=== PATIENT | female | born 1950 | race Caucasian/White ===

== ENCOUNTER 2018-10-28 09:43 | Outpatient (REF) | payer OTHER, SELFPAY ==
[2018-10-28 14:17] LABS: ALT 30 U/L (12-78); AST 16 U/L (15-37); Albumin 3.5 g/dL (3.4-5.0); Alkaline Phosphatase 117 U/L (46-116); Anion Gap 6.4 mmol/L (3-11); BUN 16 mg/dL (7-18); Bilirubin, Total 0.3 mg/dL (0.2-1.0); CO2 30.6 mmol/L (21.0-32.0); CREATININE 1.04 mg/dL (0.55-1.02); Calcium 9.1 mg/dL (8.5-10.1); Chloride 102 mmol/L (98-107); Cholesterol 149 mg/dL (50-200); Glucose 98 mg/dL (70-100); HDL Cholesterol 49 mg/dL (40-60); LDL CHOLESTEROL 80 mg/dL (<100); Potassium 4.3 mmol/L (3.5-5.1); Sodium 139 mmol/L (136-145); TSH (W/Ref FT4) 7.64 uIU/mL (0.358-3.74); Triglyceride 113 mg/dL (30-150)
[2018-10-28 14:34] LABS: FREE T4 0.84 ng/dL (0.76-1.46)
[2018-10-28 14:39] LABS: Vitamin D 25 Total 75.2 ng/ml (30-100)
== END 2018-10-28 10:03 ==
LOC: NCHCN 09:43
PROVIDERS: PCP Family Medicine; Visit Provider Family Medicine
DX: E03.9 Hypothyroidism, unspecified (principal); E55.9 Vitamin D deficiency, unspecified
CPT/HCPCS: 80053; 80061; 82306; 83721; 84439; 84443

== ENCOUNTER 2018-11-12 13:56 | Outpatient (CLI) | payer OTHER, SELFPAY ==
--- NOTE | 2018-11-14 13:00 | DI.MAMMO_ITS ---
SYMPTOMS/DIAGNOSIS: SCREENING, Z12.31, [facility], Z00.00 MAMMOGRAMS: Mammograms were interpreted according to the usual protocol including computer analysis with CAD system, tomosynthesis and C view imaging. The breasts are heterogeneously dense. No dominant mass or clumped microcalcification is identified in either breast. Current examination is compared with previous examinations including June 2017 and there has been no gross interval change in appearance in comparison with the previous studies. CONCLUSION: No specific evidence of malignancy at this time. Routine screening examinations are suggested at yearly intervals in this age group according to the ACS/ACR guidelines. Category 1, breast density category C. MQSA ASSESSMENT OF FINDINGS: Negative. Category 1. Patient will receive a letter notifying them of these results. Bi-RADS category C. The breasts are heterogeneously dense, which may obscure small masses.
== END 2018-11-12 14:16 ==
PROVIDERS: PCP Family Medicine; Visit Provider Family Medicine
DX: Z00.00 Encounter for general adult medical examination without abnormal findings (principal); Z12.31 Encounter for screening mammogram for malignant neoplasm of breast
CPT/HCPCS: 77063; 77067

== ENCOUNTER 2019-01-06 00:10 | Outpatient (CLI) | payer OTHER, SELFPAY ==
--- NOTE | 2019-01-06 08:15 | MERGEMPI_ITS ---
*[facility]* *[facility]* [address] [place] [address] Myocardial Perfusion Imaging - SPECT Bob protocol Date of study: 01/06/2019 *PATIENT PRESENTATION* Height: 162.6cm (64in) Blood Pressure: Weight: 105.9kg (233lb) BSA: 2.24m^2 Referring physician: Todd Maravilla MD Ordering physician: Graciela Jackson Impressions: - Normal perfusion by Tc99m Sestamibi Imaging. - Breast artifact noted. Summary: 1. Myocardial perfusion imaging: No myocardial perfusion defects noted. 2. The calculated left ventricular ejection fraction after stress: 59%. Indication: R07.9. History: REASON FOR TESTING: CHEST PAIN FROM CENTER OF CHEST THAT WNET INTO THE PATIENT'S BACK AND UP INTO HER JAW WITH ASSOCIATED NAUSEA. LASTED 20-30 MINS. SYMPTOMS RESOLVED WITH REST. PT HAS NOT HAD ANY REPEATS OF THE PAIN SINCE. PMH: HYPOTHYROIDISM, ANXIETY, DEPRESSION FAMILY HX: BROTHER- CVS X2, BROTHER CVA AND HI. SMOKING: QUIT 1990. SMOKED X 40 YEARS 23- PPD. EXCERCISE: NO REGULAR EXCERCISE. Risk factors: Family history of coronary artery disease. Obesity. Dyslipidemia. Cholesterol: 274mg/dl. HDL: 49mg/dl. LDL: 80mg/dl. Triglycerides: 113mg/dl. ALLERIGES: MEPERIDINE, SULFA MEDICATIONS: SERTRALINE 200 MG DAILY, PANTOPRAZOLE 40 MG DAILY, LEVOTHYROXINE 88 MCG, VIT D3 1 DAILY, AMITRIPTYLINE 100 MG HS. Imaging Technique: Protocol: Bob protocol. Acquisition: Gated SPECT; 1 day - rest/stress. The patient was imaged in the supine position. Attenuation correction used. Isotope administration: - Rest. Tc[99m]-sestamibi. Dose: 10.3mCi. Injection time: 08:15 AM. Injection to stress time: 00:45. - Stress. Tc[99m]-sestamibi. Dose: 32mCi. Injection time: 10:05 AM. 1-2 min before end of exercise Baseline ECG: LAST EKG 10/24/06- SINUS RHYTHM, HR 81 TODAY'S EKG- SINUS RYHTYM, HR 73. Stress protocol: + +---+ +---+ + !Stage !HR !BP (mmHg) !Sat!Comments ! + +---+ +---+ + !Baseline supine !73 !122/58 !---! ! ! ! !(79) ! ! ! + +---+ +---+ + !Baseline standing!75 !130/68 !---!TRANSITIONED TO LEXISCAN ! ! ! !(89) ! !PROTOCOL. ! + +---+ +---+ + !Peak stress !110!148/60 !96%! ! ! ! !(89) ! ! ! + +---+ +---+ + !1 min !87 !138/60 !---!Inject Regadenoson. ! ! ! !(86) ! ! ! + +---+ +---+ + !2 min !91 ! !---! ! + +---+ +---+ + !3 min !89 ! !---! ! + +---+ +---+ + !4 min !85 !124/60 !---! ! ! ! !(81) ! ! ! + +---+ +---+ + !5 min !84 ! !---! ! + +---+ +---+ + !6 min !83 !122/58 !---! ! ! ! !(79) ! ! ! + +---+ +---+ + * Stress results: The rate-pressure product for the peak heart rate and blood pressure was 70886iu Hg/min. Stress ECG: EXCERCISE TESTING ENDED IN 1 MIN, 54 SECS DUE TO FATIGUE. MAX HR WAS 110, 72% OF TARGET. HYPERTENSIVE BLOOD PRESSURE RESPONSE. METS:4.57 ECTOPY: NONE ANGINA: NONE ISCHEMIA:NONE FUNCTIONAL CAPACITY: MODERATELY TO MARKELY DIMINISHED CAPACITY. TRANSITIONED TO LEXISCAN PROTOCOL AT 1 MIN, 54 SECS OF TESTING. MAX HR WAS 91, WITH A NORMAL BLOOD PRESSURE RESPONSE. ECTOPY: NONE ANGINA: NONE ISCHEMIA: NONE Myocardial perfusion: Imaging information: gated. No myocardial perfusion defects noted. Ventricular Function (Wall Motion): The calculated left ventricular ejection fraction after stress: 59%. Study data: Todd Maravilla MD supervised and was readily available during the procedure. This study was interpreted by [facility]. Study status: Routine. Consent: The risks, benefits, and alternatives to the procedure were explained to the patient and informed consent was obtained. Procedure: Initial setup. A baseline ECG was recorded. Surface ECG leads and manual cuff blood pressure measurements were monitored. Heart sounds: Normal. Lung sounds: Normal. Treadmill exercise testing was performed using the Bob protocol. Study completion: All catheters inserted during the procedure were removed. The patient tolerated the procedure well and was discharged from the lab. Discharge: The patient left the laboratory in stable condition. Birthdate: Patient birthdate: 1950. Sex: Gender: female. Study date: Study date: 01/06/2019. Study time: 00:01 AM. Electronically signed by Todd Maravilla MD 01/06/2019 17:04
[2019-01-06] MEDS: Regadenoson 0.4 MG/5 ML SYR IVP (11:21)
== END 2019-01-06 00:30 ==
PROVIDERS: PCP Family Medicine; Visit Provider Family Medicine
DX: R07.9 Chest pain, unspecified (principal); E03.9 Hypothyroidism, unspecified; F41.8 Other specified anxiety disorders; E78.5 Hyperlipidemia, unspecified; Z87.891 Personal history of nicotine dependence; Z82.49 Family history of ischemic heart disease and other diseases of the circulatory system
CPT/HCPCS: 78452; 93016; 93018; 93017; J2785

== ENCOUNTER 2019-10-13 11:40 | Outpatient (REF) | payer OTHER, SELFPAY ==
[2019-10-13 20:57] LABS: FREE T4 0.87 ng/dL (0.76-1.46); TSH 4.09 uIU/mL (0.36-3.74)
== END 2019-10-13 12:00 ==
LOC: NCHCN 11:40
PROVIDERS: PCP Family Medicine; Visit Provider Family Medicine
DX: E03.9 Hypothyroidism, unspecified (principal)
CPT/HCPCS: 84439; 84443

== ENCOUNTER 2020-01-29 14:03 | Outpatient (REF) | payer OTHER, SELFPAY ==
[2020-01-29 21:19] LABS: FREE T4 1.04 ng/dL (0.76-1.46)
== END 2020-01-29 14:23 ==
LOC: NCHCN 14:03
PROVIDERS: PCP Family Medicine; Visit Provider Family Medicine
DX: E03.9 Hypothyroidism, unspecified (principal)
CPT/HCPCS: 84439; 84443

== ENCOUNTER 2020-04-12 21:37 | Outpatient (REF) | payer OTHER, SELFPAY | END 2020-04-12 21:57 | LOC: NCHCN 21:37 | PROVIDERS: PCP Family Medicine; Visit Provider Family Medicine | DX: R30.0 Dysuria (principal) | CPT/HCPCS: 87077; 87086; 87186 ==

== ENCOUNTER 2020-04-28 14:29 | Outpatient (REF) | payer OTHER, SELFPAY | END 2020-04-28 14:49 | LOC: NCHCN 14:29 | PROVIDERS: PCP Family Medicine; Visit Provider Nurse Practitioner Family | DX: R30.0 Dysuria (principal) | CPT/HCPCS: 87086 ==

== ENCOUNTER 2021-02-10 11:56 | Outpatient (REF) | payer OTHER, SELFPAY | END 2021-02-10 11:57 | disposition home or self-care (01) | LOC: NCHCN 11:56 | PROVIDERS: PCP Family Medicine; Visit Provider Family Medicine | DX: R30.0 Dysuria (principal) | CPT/HCPCS: 87077; 87086; 87186 ==

== ENCOUNTER 2021-02-17 01:25 | Outpatient (CLI) | payer OTHER, SELFPAY ==
--- NOTE | 2021-02-17 12:03 | DI.MAMMO_ITS ---
Exam(s) MAMMO SCREENING EXAM: MAMMO SCREENING CLINICAL HISTORY: SCREENING, Z12.31. TECHNIQUE: Bilateral full field digital CC and MLO mammographic images were obtained with 3D tomosyn thesis and utilizing computer aided detection (CAD). COMPARISON: Prior mammograms dating back to 2011, the most recent being October 2018. FINDINGS: There has been no significant change in the appearance and distribution of the fibroglandular tissue. There are no new spiculated masses nor malignant appearing microcalcification groups. Left-sided skin mole is unchanged from prior studies. There is no significant architectural distortion nor skin thickening-retraction. IMPRESSION: No radiographic evidence of malignancy. BI-RADS Category 1 - Negative Breast Density - Category C - Heterogeneously dense Breast density Category C or D implies that the patient has dense breast tissue. Dense breast tissue can make it harder to find cancer on a mammogram. Dense breast tissue is also associated with an incr eased risk of breast cancer. This information about the result of the mammogram report was provided to the patient to raise their awareness. Use this report when you speak with the patient about their risks for breast cancer, which includes their family history. At that time, you may recommend additional screening tests (Ultrasoun d or MRI) as these tests may add significant information. A negative radiographic report should not delay biopsy if a dominant or clinically suspicious mass is present. Up to ten percent of cancers are not identified on mammography. A negative report may reinforce clinical impression. Adenosis and dense breasts may obscure an underlying neoplasm. False positive reports average 6 to 10%. Patient will receive a letter notifying them of these results.
== END 2021-02-17 01:45 ==
PROVIDERS: PCP Family Medicine; Visit Provider Family Medicine
DX: Z12.31 Encounter for screening mammogram for malignant neoplasm of breast (principal)
CPT/HCPCS: 77063; 77067

== ENCOUNTER 2021-04-12 14:17 | Outpatient (REF) | payer OTHER, SELFPAY ==
[2021-04-12 15:15] LABS: ALT 36 U/L (14-59); AST 20 U/L (15-37); Albumin 3.8 g/dL (3.4-5.0); Alkaline Phosphatase 103 U/L (46-116); Anion Gap 7.4 mmol/L (3-11); BUN 16 mg/dL (7-18); Bilirubin, Total 0.3 mg/dL (0.2-1.0); CO2 30.6 mmol/L (21.0-32.0); CREATININE 1.2 mg/dL (0.55-1.02); Calcium 9.1 mg/dL (8.5-10.1); Calculated LDL 99 mg/dL (<100); Chloride 104 mmol/L (98-107); Cholesterol 170 mg/dL (<200); Estimated GFR 44.41 (mL/min/1.73m2); Glucose 106 mg/dL (74-106); HDL Cholesterol 47 mg/dL (40-60); Potassium 4.7 mmol/L (3.5-5.1); Sodium 142 mmol/L (136-145); TSH (W/Ref FT4) 6.58 uIU/mL (0.36-3.74); Total Protein 6.9 g/dL (6.4-8.2); Triglyceride 124 mg/dL (<150)
[2021-04-12 16:02] LABS: FREE T4 0.71 ng/dL (0.76-1.46)
== END 2021-04-12 14:18 | disposition home or self-care (01) ==
LOC: NCHCN 14:17
PROVIDERS: PCP Family Medicine; Visit Provider Family Medicine
DX: E78.5 Hyperlipidemia, unspecified (principal); E03.9 Hypothyroidism, unspecified
CPT/HCPCS: 80053; 80061; 84439; 84443

== ENCOUNTER 2021-06-02 17:59 | Outpatient (REF) | payer MEDICARE, SELFPAY ==
[2021-06-02 23:07] LABS: TSH (W/Ref FT4) 2.84 uIU/mL (0.36-3.74)
== END 2021-06-02 18:00 | disposition home or self-care (01) ==
LOC: NCHCN 17:59
PROVIDERS: PCP Family Medicine; Visit Provider Family Medicine
DX: E03.9 Hypothyroidism, unspecified (principal)
CPT/HCPCS: 84443

== ENCOUNTER 2022-10-16 15:19 | Outpatient (REF) | payer MEDICARE, SELFPAY ==
[2022-10-16 15:41] LABS: Abs Immature Grans 0.02 10^3/uL (0.0-0.06); Absolute Basophil Count 0.06 10^3/uL (0.0-0.2); Absolute Eosinophil Count 0.19 10^3/uL (0.0-0.7); Absolute Lymphocyte Count 2.49 10^3/uL (1.2-3.4); Absolute Monocyte Count 0.58 10^3/uL (0.1-0.8); Absolute Neutrophil Count 4.03 10^3/uL (1.2-6.7); Basophils % 0.8; Eosinophils % 2.6; HCT 42.6 % (36.0-46.0); HGB 13.8 g/dL (11.2-15.7); Immature Grans % 0.3; Lymphocytes % 33.8; MCH 31.2 pg (27.0-33.0); MCHC 32.4 % (32.0-36.0); MCV 96 fL (80-95); MPV 10.5 fL (8.0-11.0); Monocytes % 7.9; Neutrophils % 54.6; Platelet Count 322 10^3/uL (130-400); RBC 4.43 10^6/uL (3.93-5.22); RDW 13.7 % (11.7-14.6); WBC 7.37 10^3/uL (4.4-10.8)
[2022-10-16 16:14] LABS: ALT 32 U/L (14-59); AST 18 U/L (15-37); Albumin 3.8 g/dL (3.4-5.0); Alkaline Phosphatase 99 U/L (46-116); Anion Gap 7.8 mmol/L (3-11); BUN 15 mg/dL (7-18); Bilirubin, Total 0.2 mg/dL (0.2-1.0); CO2 29.2 mmol/L (21.0-32.0); CREATININE 1.1 mg/dL (0.55-1.02); Calcium 9.1 mg/dL (8.5-10.1); Calculated LDL 79 mg/dL (<100); Chloride 105 mmol/L (98-107); Cholesterol 149 mg/dL (<200); Estimated GFR 53.39 (mL/min/1.73m2); Glucose 114 mg/dL (74-106); HDL Cholesterol 53 mg/dL (40-60); Potassium 4.2 mmol/L (3.5-5.1); Sodium 142 mmol/L (136-145); TSH (W/Ref FT4) 2.37 uIU/mL (0.36-3.74); Total Protein 6.9 g/dL (6.4-8.2); Triglyceride 88 mg/dL (<150)
[2022-10-16 19:48] LABS: FREE T4 0.99 ng/dL (0.76-1.46)
== END 2022-10-16 15:20 | disposition home or self-care (01) ==
LOC: NCHCN 15:19
PROVIDERS: PCP Family Medicine; Visit Provider Family Medicine
DX: E03.9 Hypothyroidism, unspecified (principal); E78.5 Hyperlipidemia, unspecified
CPT/HCPCS: 80053; 80061; 84439; 84443; 85025

== ENCOUNTER 2022-11-01 01:40 | Outpatient (CLI) | payer MEDICARE, SELFPAY ==
--- NOTE | 2022-11-01 | DI.MAMMO_ITS ---
Exam(s) MAMMO SCREENING EXAM: MAMMO SCREENING CLINICAL HISTORY: SCREENING, Z12.31 TECHNIQUE: Bilateral full field digital CC and MLO mammographic images were obtained with 3D tomosyn thesis and utilizing computer aided detection (CAD). COMPARISON: Available for comparison. FINDINGS: Masses/Architectural Distortion: There is a new 3-4 mm nodule in the medial right breast on the crani ocaudad view. No areas of architectural distortion are seen. Microcalcifications: No suspicious pleomorphic-type are seen. Skin Thickening/Nipple Retraction: None. IMPRESSION: 1. New 3-4 mm nodule in the medial right breast. This is best appreciated on the craniocaudad view. 2. Spot compression view and limited right breast ultrasound is requested for further evaluation. BI-RADS Category 0 - Assessment Incomplete: Need additional imaging evaluation Breast Density - Category C - Heterogeneously dense Breast density category C or D implies that the patient has dense breast tissue. Dense breast tissue is very common and is not abnormal but dense breast tissue can make it harder to find cancer on a ma mmogram. Also, dense breast tissue may increase their breast cancer risk. This information about the result of the mammogram report was provided to the patient to raise their awareness. Use this report when you speak with the patient about their risks for breast cancer, which includes their family hist ory. At that time, you may recommend for more screening tests (Ultrasound or MRI) as they might be us eful based on their risk. A negative radiographic report should not delay biopsy if a dominant or clinically suspicious mass is present. Up to ten percent of cancers are not identified on mammography. A negative report may reinforce clinical impression. Adenosis and dense breasts may obscure an underlying neoplasm. False positive reports average 6 to 10%. Patient will receive a letter notifying them of these results.
== END 2022-11-01 02:00 ==
PROVIDERS: PCP Family Medicine; Visit Provider Family Medicine
DX: Z12.31 Encounter for screening mammogram for malignant neoplasm of breast (principal)
CPT/HCPCS: 77063; 77067

== ENCOUNTER 2022-11-09 01:35 | Outpatient (CLI) | payer MEDICARE, SELFPAY ==
--- NOTE | 2022-11-09 13:59 | DI.MAMMO_ITS ---
Exam(s) MG MAMMO SCREEN CALL BACK UNI US BREAST RT LIMITED EXAM: MG MAMMO SCREEN CALL BACK UNI- RIGHT AND COMPLETE RIGHT BREAST ULTRASOUND CLINICAL HISTORY: 3-4 MM NODULE MEDIAL RT BREAST. TECHNIQUE: Unilateral spot mammographic images obtained with 3D tomosynthesisand utilizing computer aided detection (CAD). . Complete RIGHT breast Ultrasound was also performed, including all 4 quadrants, the retroareolar isi on, and the ipsilateral axilla. COMPARISON: Prior mammograms were reviewed. This additional imaging was performed due to findings described on the recent screening mammogram of 11/01/2022. FINDINGS: DIAGNOSTIC MAMMOGRAM: Additional mammographic views performed todaydoes not dissipate nodule. We proceeded with ultrasound. COMPLETE RIGHT BREAST ULTRASOUND: Ultrasound performed today reveals a solitary finding at the 4 o'clock position 10 cm from nipple whi ch corresponds to the small nodule on the mammogram. This has ultrasound appearance of a sebaceous c yst, measuring 2-3 millimeter. No other focal ultrasound findings in all 4 quadrants. Scanning of the ipsilateral axilla reveals no significant adenopathy. IMPRESSION: 1. Benign-appearing findings. These small new nodule located inferomedially in the right breast has the appearance of probable sebaceous cyst on ultrasound. Appropriate follow-up as discussed by myself with the patient today is repeat right breast mammogram in 6 months. The patient was informed of these findings and recommendations myself prior to leaving the department today. BI-RADS Category 3 - 6 month - Probably Benign Finding: Recommend follow-up mammography in 6 months Breast Density - Category B - Scattered areas of fibroglandular density Breast density Category C or D implies that the patient has dense breast tissue. Dense breast tissue can make it harder to find cancer on a mammogram. Dense breast tissue is also associated with an incr eased risk of breast cancer. This information about the result of the mammogram report was provided to the patient to raise their awareness. Use this report when you speak with the patient about their risks for breast cancer, which includes their family history. At that time, you may recommend additional screening tests (Ultrasoun d or MRI) as these tests may add significant information. A negative radiographic report should not delay biopsy if a dominant or clinically suspicious mass is present. Up to ten percent of cancers are not identified on mammography. A negative report may reinforce clinical impression. Adenosis and dense breasts may obscure an underlying neoplasm. False positive reports average 6 to 10%. Patient will receive a letter notifying them of these results.
== END 2022-11-09 01:55 ==
LOC: DI 01:36
PROVIDERS: PCP Family Medicine; Visit Provider Family Medicine
DX: R92.8 Other abnormal and inconclusive findings on diagnostic imaging of breast (principal); Z12.31 Encounter for screening mammogram for malignant neoplasm of breast
CPT/HCPCS: 76642; 77063; 77067

== ENCOUNTER → 2023-06-29 01:34 | Outpatient (CLI) | payer MEDICARE, SELFPAY ==
--- NOTE | 2023-06-29 14:25 | DI.MAMMO_ITS ---
Exam(s) MAMMO DIAGNOSTIC UNI EXAM: MAMMO DIAGNOSTIC UNI - RIGHT CLINICAL HISTORY: ABNL MAMMO RT BREAST R92.8. TECHNIQUE: Unilateral spot mammographic images were obtained with 3D tomosynthesis technique and uti lizing computer aided detection (CAD). COMPARISON: Prior mammograms were reviewed, the most recent being October 2022. Prior ultrasound also reviewed. FINDINGS: There are no spiculated masses nor malignant-appearing microcalcification groups in the right breast. The previously described small benign-appearing round superficial nodule located medial of center in the right breast is unchanged. This was shown to be a probable sebaceous cyst on the ultrasound exam ination of 11/09/2022. No new architectural distortion or skin thickening-traction. IMPRESSION: Stable benign-appearing right breast finding Appropriate follow-up is to keep this patient on her yearly mammogram schedule, this implying that he r next bilateral mammogram would be in October or December 2023. The patient was informed of the findings and follow-up recommendations by myself prior to leaving the department today. BI-RADS Category 2 - Benign Findings Breast Density - Category B - Scattered areas of fibroglandular density Breast density Category C or D implies that the patient has dense breast tissue. Dense breast tissue can make it harder to find cancer on a mammogram. Dense breast tissue is also associated with an incr eased risk of breast cancer. This information about the result of the mammogram report was provided to the patient to raise their awareness. Use this report when you speak with the patient about their risks for breast cancer, which includes their family history. At that time, you may recommend additional screening tests (Ultrasoun d or MRI) as these tests may add significant information. A negative radiographic report should not delay biopsy if a dominant or clinically suspicious mass is present. Up to ten percent of cancers are not identified on mammography. A negative report may reinforce clinical impression. Adenosis and dense breasts may obscure an underlying neoplasm. False positive reports average 6 to 10%. Patient will receive a letter notifying them of these results.
== END ==
PROVIDERS: PCP Family Medicine; Visit Provider Family Medicine
DX: Z12.31 Encounter for screening mammogram for malignant neoplasm of breast (principal); R92.8 Other abnormal and inconclusive findings on diagnostic imaging of breast
CPT/HCPCS: 77061; 77065; G0279

== ENCOUNTER 2023-08-27 18:06 | Outpatient (REF) | payer MEDICARE, SELFPAY ==
[2023-08-27 15:52] LABS: ALT 26 U/L (14-59); AST 20 U/L (15-37); Albumin 3.6 g/dL (3.4-5.0); Alkaline Phosphatase 97 U/L (46-116); Anion Gap 9.3 mmol/L (3-11); BUN 15 mg/dL (7-18); Bilirubin, Total 0.3 mg/dL (0.2-1.0); CO2 28.7 mmol/L (21.0-32.0); CREATININE 1.2 mg/dL (0.55-1.02); Calcium 9.8 mg/dL (8.5-10.1); Chloride 104 mmol/L (98-107); Glucose 114 mg/dL (74-106); Potassium 4.4 mmol/L (3.5-5.1); Sodium 142 mmol/L (136-145); Total Protein 7.3 g/dL (6.4-8.2)
[2023-08-27 16:02] LABS: Hemoglobin A1C 6.6 % (<5.7)
== END 2023-08-27 18:07 | disposition home or self-care (01) ==
LOC: NCHCN 18:06
PROVIDERS: PCP Family Medicine; Visit Provider Family Medicine
DX: E11.9 Type 2 diabetes mellitus without complications (principal)
CPT/HCPCS: 80053; 83036

== ENCOUNTER 2023-11-05 16:35 | Outpatient (REF) | payer MEDICARE, SELFPAY ==
[2023-11-05 21:20] LABS: HCT 41.7 % (36.0-46.0); HGB 13.2 g/dL (11.2-15.7); MCHC 31.7 % (32.0-36.0); MCV 98 fL (80-95); MPV 10.4 fL (8.0-11.0); Platelet Count 310 10^3/uL (130-400); RBC 4.26 10^6/uL (3.93-5.22); RDW 13.4 % (11.7-14.6); RDW-SD 48.6 fL; WBC 11.08 10^3/uL (4.4-10.8)
[2023-11-05 21:47] LABS: ALT 37 U/L (14-59); AST 22 U/L (15-37); Albumin 3.8 g/dL (3.4-5.0); Alkaline Phosphatase 97 U/L (46-116); Anion Gap 9.6 mmol/L (3-11); BUN 16 mg/dL (7-18); Bilirubin, Total 0.3 mg/dL (0.2-1.0); CO2 28.4 mmol/L (21.0-32.0); CREATININE 1.2 mg/dL (0.55-1.02); Calcium 8.9 mg/dL (8.5-10.1); Chloride 104 mmol/L (98-107); Glucose 156 mg/dL (74-106); Potassium 3.8 mmol/L (3.5-5.1); Sodium 142 mmol/L (136-145); Total Protein 7.3 g/dL (6.4-8.2)
== END 2023-11-05 16:36 | disposition home or self-care (01) ==
LOC: NCHCN 16:35
PROVIDERS: PCP Family Medicine; Visit Provider Family Medicine
DX: R55 Syncope and collapse (principal)
CPT/HCPCS: 80053; 85027

== ENCOUNTER → 2023-11-14 03:48 | Outpatient (CLI) | payer MEDICARE, SELFPAY ==
--- NOTE | 2023-11-14 | DI.CT_ITS ---
Exam(s) CT HEAD WO EXAM: CT HEAD WO CLINICAL HISTORY: R55 Syncope/collapse. TECHNIQUE: Imaging Protocol: Axial computed tomography images with coronal and sagittal reformatted images were created and reviewed COMPARISON: No exams were available for comparison FINDINGS: Ventricles and Extra axial spaces: Normal in size and morphology for the patient's age. Hemorrhage: None. Cerebral parenchyma: There are areas of decreased attenuation in the white matter consistent with sma ll vessel ischemic disease. Midline shift: None. Brainstem/Cerebellum: Normal. Calvarium: Normal. Visualized Paranasal sinuses/Mastoids: Clear. Soft Tissues: Unremarkable. IMPRESSION: No acute intracranial process. RADIATION DOSE DELIVERED: 766mGy.cm Total DLP DATA REPOSITORY: All CT scans at this facility are submitted to the National Radiology Data Registry (NRDR) Dose Index Registry (DIR) with the [employer] (ACR). RADIATION OPTIMIZATION: All CT scans at this facility use at least one of these dose optimization te chniques: automated exposure control; mA and/or kV adjustment per patient size (includes targeted exa ms where dose is matched to clinical indication); or iterative reconstruction.
--- NOTE | 2023-11-14 15:02 | DI.US_ITS ---
Exam(s) US CAROTID EXAM: US CAROTID CLINICAL HISTORY: R55 Syncope/collapse. TECHNIQUE: Ultrasound carotids performed using grayscale, color-flow, and spectral Doppler imaging. COMPARISON: No exams were available for comparison FINDINGS: RIGHT CAROTID ARTERY: Plaque: No significant plaque is seen. Velocity elevation: There are elevated velocities in the proximal mid right ICA. The vessels are tor tuous. LEFT CAROTID ARTERY: Plaque: No significant calcific plaque is seen. Velocity elevation: None. VERTEBRAL ARTERIES: Antegrade flow. Measurements: R Bulb: 88cm/s PS / 16.7cm/s ED R CCA: 91.9cm/s PS / 27.1cm/s ED R ECA: 94.4cm/s PS / 14.1cm/s ED R ICA Prox: 123.9cm/s PS / 17.2cm/s ED R ICA Mid: 157.6cm/s PS / 17.1cm/s ED R ICA Distal: 98.4cm/s PS /36.2cm/s ED R Vert: 51.5cm/s PS / 15.3cm/s ED R SVR: 1.7 R DVR: 0.6 L Bulb: 89.3cm/s PS / 25.4cm/s ED L CCA: 91.1cm/s PS / 29cm/s ED L ECA: 153.1cm/s PS / 27.2cm/s ED L ICA Prox: 111.2cm/s PS / 21.7cm/s ED L ICA Mid: 90.5cm/s PS / 30.7cm/s ED L ICA Distal: 79.7cm/s PS / 28.8cm/s ED L Vert: 76cm/s PS / 18cm/s ED L SVR: 1.2 L DVR: 0.7 IMPRESSION: 1. Tortuous right ICA. Elevated velocities in the mid and proximal right internal carotid artery are noted. This may be due to the tortuous velocities. No calcific plaque is seen in the internal aden tid artery. Correlation with CT/MR angiography of the neck is recommended. 2. No hemodynamically significant velocity elevations on the left. Criteria for Carotid Stenosis: Normal: ICA PSV <125 cm/s no plaque or intimal thickening is visible. <50% stenosis: ICA PSV <125 cm/s and plaque or intimal thickening is visible. 50-69% stenosis: ICA PSV is 125-250 cm/s and plaque is visible. >70% stenosis to near occlusion: ICA PSV >250 cm/s with visible plaque and luminal narrowing. DATA REPOSITORY:
== END ==
PROVIDERS: PCP Family Medicine; Visit Provider Family Medicine
DX: R55 Syncope and collapse (principal)
CPT/HCPCS: 70450; 93880

== ENCOUNTER 2023-11-22 12:57 | Outpatient (CLI) | payer MEDICARE, SELFPAY | END 2023-11-22 12:58 | disposition home or self-care (01) | PROVIDERS: PCP Family Medicine; Visit Provider Family Medicine | DX: R55 Syncope and collapse (principal) | CPT/HCPCS: 93270 ==

== ENCOUNTER → 2023-11-29 02:20 | Outpatient (CLI) | payer MEDICARE, SELFPAY ==
--- NOTE | 2023-11-29 14:32 | DI.US_ITS ---
APPROVED REPORT EXAM: Comprehensive 2D, Doppler, and color-flow Echocardiogram Patient Location: Out-Patient Tenant Selector: Kaila Blackburn RDCS (AE) Indications: Syncope and collapse Other Information Study Quality: Adequate. Technically limited study due to body habitus. Conclusion Normal left ventricular wall thickness and chamber size. Ejection fraction is 60%. Wall motion is n ormal Normal right ventricular size and function Both atria are normal in size Aortic valve is sclerotic and trileaflet with trace to mild regurgitation Wall motion Left Ventricle The left ventricle is normal size. The left ventricular systolic function is normal. The left ventric ular ejection fraction is within the normal range. There is normal left ventricular wall thickness. T here is normal LV segmental wall motion. There is no ventricular septal defect visualized. LVEF is 60 %. Right Ventricle Right ventricle is grossly normal in size. Right ventricular systolic function is grossly normal. Atria The left atrium size is normal. The right atrium size is normal. The interatrial septum is intact wit h no evidence for an atrial septal defect. Aortic Valve The Aortic valve is sclerotic. Aortic valve is trileaflet. There is no aortic valvular stenosis. Tr maryuri to mild aortic regurgitation. Mitral Valve The mitral valve is normal in structure. No evidence of mitral valve stenosis. Trace mitral regurgita tion. Tricuspid Valve The tricuspid valve is normal in structure. There is no tricuspid valve stenosis. Trace tricuspid reg urgitation. Unable to assess PA pressure. Pulmonic Valve The pulmonary valve is normal in structure. There is no pulmonic valvular stenosis. Trace pulmonic re gurgitation. Great Vessels The aortic root is normal in size. The ascending aorta is normal Aortic arch is not well visualized. IVC is normal in size and collapses >50% with inspiration. Pericardium There is no pericardial effusion. 2D Dimensions IVSD d PLAX 0.97 cm F: 0.6-1.0 Ao Root d 3.18 cm F: 2.7 - 3.3 LVPW d PLAX 0.98 cm F: 0.6 - 1.0 Ao Asc Diam d 3.23 cm F: 2.3 - 3.1 LVID d PLAX 4.49 cm F: 3.8 - 5.2 LVDs 3.05 cm F: 2.2 - 3.5 LV EF Teichholz 60.2 % FS 31.93 % LV EDV (Teich) 91.8 mL LV ESV (Teich) 36.5 mL Auto EF LV EDV A4C 109.1 mL LV EDV A2C 90.5 mL LV EDV BP 99.7 mL LV ESV A4C 42.5 mL LV ESV A2C 32.5 mL LV ESV BP 37.0 mL LVEF(%) A4C 61.0 % LVEF(%) A2C 64.1 % LVEF(%) BP 62.9 % LV SV A4C 66.6 ml LV SV A2C 58.0 ml LV SV BP 62.7 ml LV CO A4C 4.6 L/min LV CO A2C 4.2 L/min LV CO BP 4.4 L/min HR A4C 68.57 BPM HR A2C 71.58 BPM LV EDV Index (BP) LA Volume LA Length A4C 5.0 cm LA Length A2C 5.7 cm LA Area A4C s 16.97 cm2 LA Area A2C s 21.81 cm2 LA Vol A4C A-L 48.77 mL LA Vol A2C A-L 70.40 mL LA Vol Biplane A-L 62.7 mL LA Vol/BSA A4C A-L LA Vol/BSA A2C A-L LA Vol/BSA BP A-L 30.3 mL/m2 LA Vol A4C MOD 45.8 mL LA Vol A2C MOD 67.3 mL LA Vol BP MOD 59.2 mL RA Volume RA Area A4C 9.7 cm2 RA ESV A4C (A-L) 20.3mL RA Vol/BSA A4C A-L RA Length A4C 3.9 cm RA ESV A4C (MOD) 19.7mL LV Diastology MV E' medial 0.071 (>0.07 m/s) MV E Vmax 0.81 (0.4-1.3 m/s) MV E/E' MED 11.42 (<14) MV A Vmax 1.05 (0.4-1.3 m/s) MV E' lateral 0.096 (>0.1 m/s) E/A Ratio 0.8 MV E/E' LAT 8.45 (<14) MV E' Average 0.084 m/s MV E/E'(average) 9.72 Aortic Valve AoV Vmax 1.56 m/s LVOT Vmax 1.23 m/s AoV Peak Grad 32.5 mmHg LVOT Peak Grad 6.0 mmHg AoV Area (Vmax) 2.42 cm2 LVOT VTI 0.246 m AoV VTI 0.298 m LVOT Mean Grad 2.7 mmHg AoV Mean Adams. 0.99 m/s LVOT SV 75.91 mL AoV Mean Grad 4.7 mmHg LVOT Diam s 1.95 cm AoV Area (VTI) 2.55 cm2 AV Regurg Peak Gr. 55.25 mmHg Velocity Ratio 0.79 AR Decel Sharp 1.5m/sec2 AR DT 2403 msec AR PHT 697 msec AR Vmax 3.72 m/s Mitral Valve MV DT 342 (160-240 msec) MV Vmax TIPS 0.99 m/s MV Mean Grad 1.5 (<2mmHg) MV VTI 0.391 m Pulmonary Valve PV Vmax 1.52 (0.5-1.5 m/s) RVOT Vmax 0.83 m/s PV Peak Grad 9.3 mmHg RVOT Peak Gr. 2.8 mmHg PV Mean Adams 0.99 m/s RVOT VTI 0.165 m PV Mean Grad 4.8 mmHg RVOT Mean Gr. 1.6 mmHg Tricuspid Valve RA Pressure 3.00 mmHg TV S' 0.15 m/s
== END ==
PROVIDERS: PCP Family Medicine; Visit Provider Family Medicine
DX: R55 Syncope and collapse (principal)
CPT/HCPCS: 93306

== ENCOUNTER 2023-12-17 08:12 | Outpatient (CLI) | payer MEDICARE, SELFPAY ==
--- NOTE | 2023-12-17 09:04 | W.CARDEVENT ---
Date of service: 12/17/23 Time of Service: 09:04 Cardiac Event Recorder Referring Provider:: Graciela Jackson Indications:: Syncope Cardiac Event Note: This is a cardiac event monitor. Patient was monitored for 13 days and 14 hours Rhythm throughout was sinus. Average heart rate was 73. Minimum was 59, maximum was 115 There were no significant atrial or ventricular dysrhythmias. There was no atrial fibrillation. There were no apparent patient symptoms
== END 2023-12-17 08:13 | disposition home or self-care (01) ==
LOC: CARDOPNVT 08:12
PROVIDERS: PCP Family Medicine; Visit Provider Internal Medicine Cardiovascular Disease
DX: R55 Syncope and collapse (principal)
CPT/HCPCS: 93272

== ENCOUNTER 2024-02-18 12:27 | Emergency (ER) | payer MEDICARE, SELFPAY ==
--- NOTE | 2024-02-18 12:30 | RT.EKG_ITS ---
APPROVED REPORT Exam: Resting ECG Reason for Exam: Chest pain Patient Location: E HR:61 bpm ECG Measurements Heart Rate 61 AXIS MA 134 P 48 QRSd 94 QRS -36 QT 429 T 10 QTc 432 Conclusion Sinus rhythm...normal P axis, V-rate 60- 99 Left axis deviation...QRS axis (-30,-90) sinus left axis, non ischemic
[2024-02-18 12:37] VITALS: BP 162/85; PULSE 66; RESP 14; TEMP 36.6; O2SAT 94
[2024-02-18 15:08] LABS: Bilirubin Negative (Negative); Blood Negative (Negative); Clarity Clear (Clear); Glucose Negative (Negative); Ketones 15 mg/dL (Negative); Leukocyte Esterase Small (Negative); Nitrite Negative (Negative); Specific Gravity 1.025 (1.005-1.025); Urobilinogen 0.2 mg/dL (Up to 0.2)
== END 2024-02-18 15:02 | disposition left against medical advice (07) ==
LOC: ER 12:32
PROVIDERS: Emergency Medicine; PCP Family Medicine
DX: Z53.21 Procedure and treatment not carried out due to patient leaving prior to being seen by health care provider (principal); R07.9 Chest pain, unspecified
CPT/HCPCS: 93005; 81003; 93010

== ENCOUNTER 2024-07-04 00:23 | Outpatient (CLI) | payer MEDICARE, SELFPAY ==
--- NOTE | 2024-07-04 | DI.MAMMO_ITS ---
Exam(s) US BREAST RT COMPLETE MG MAMMO DIAGNOSTIC BI EXAM: MG MAMMO DIAGNOSTIC BI AND COMPLETE RIGHT BREAST ULTRASOUND CLINICAL HISTORY: INVERSION RT NIPPLE N64.59 OTHER SIGNS AND SYMPTOMS IN BREAST. TECHNIQUE: BILATERAL CC AND MLO mammographic images were obtained with 3D tomosynthesis technique an d utilizing computer aided detection (CAD). We also performed additional spot compression view of the right breast COMPLETE RIGHT BREAST ULTRASOUND was performed including all 4 quadrants of the right breast as well as the right axilla. COMPARISON: Prior mammograms were reviewed. Prior ultrasound reviewed This 73-year-old patient claims right breast nipple inversion for the past few months. FINDINGS: INSERT BILATERAL MAMMOGRAM: Fibroglandular tissue pattern is again noted be moderately dense. The previously described small benign-appearing nodule in the medial aspect of the right breast is no longer seen. This was apparently sebaceous cyst. There are no new spiculated masses nor malignant-appearing microcalcification groups in either breast . No new architectural distortion or skin thickening-traction in the left breast. In the right breast there is subtle nipple indrawing best seen on the MLO view. Spot compression view of the right breast does not bring out a retroareolar region nodule which is no t seen on the conventional images. COMPLETE RIGHT BREAST ULTRASOUND: There is no evidence of solid or significant cystic lesions in all 4 quadrants. Scanning of the retr oareolar region does not reveal dilated ducts nor architectural distortion. Scanning of the right axilla is negative for adenopathy. IMPRESSION: 1. No radiographic evidence of malignancy in left breast. 2. Mild right breast findings as described above but without discernible nodules. 3. The apparent history here of recent onset right breast nipple inversion I [facility]. The patient was informed of the findings and follow-up recommendations by myself prior to leaving the department today. BI-RADS Category 4 - Suspicious Abnormality: Recommend consultation with breast surgeon, given the [facility] breast history here. Breast Density - Category C - Heterogeneously dense Breast density Category C or D implies that the patient has dense breast tissue. Dense breast tissue can make it harder to find cancer on a mammogram. Dense breast tissue is also associated with an incr eased risk of breast cancer. This information about the result of the mammogram report was provided to the patient to raise their awareness. Use this report when you speak with the patient about their risks for breast cancer, which includes their family history. At that time, you may recommend additional screening tests (Ultrasoun d or MRI) as these tests may add significant information. A negative radiographic report should not delay biopsy if a dominant or clinically suspicious mass is present. Up to ten percent of cancers are not identified on mammography. A negative report may reinforce clinical impression. Adenosis and dense breasts may obscure an underlying neoplasm. False positive reports average 6 to 10%. Patient will receive a letter notifying them of these results.
--- OUTSIDE RECORDS SUMMARY | 2024-07-04 00:35 | XMS_ITS | Encounter Summary ---
Author Organization [facility] Address [address] [place] [address] Care Team Providers Care Sock Lining Examiner Name Role Phone Amisha Bardales ELIGIBILITY WORKER Primary Care Provider [phone] Encounter Details Date Type Department Care Team ([facility] st Contact Info) Description 08/15/2016 Results Only [facility] [phone] Bassam Steen MD [address] [facility] [address] [place] [address] Social History Tobacco Use Types Packs/Day Years Used Date Smoking Tobacco: Never Assessed Comments Unknown Sex and Gender Information Value Date Recorded Sex Assigned at Not on file Legal Sex Female 18:13 EST Gender Identity Not on file Sexual Orientation Not on file documented as of this encounter Plan of Treatment Not on file documented as of this encounter Procedures Procedure Name Priority Date/Time Associated Diagnosis Comments SURGICAL PATHOLOGY Routine 08/15/2016 10 :54 EST documented in this encounter Results * SURGICAL PATHOLOGY (08/15/2016 10:54 EST) Pathology Report: SURGICAL PATHOLOGY REPORT Reports generated via electronic interface contain original data; however they are lacking the format of the original report. Caution should be taken when reading/interpret ing unformatted reports. Name: ? JES SALGADO ? Accession #: ? [id number] ? : ? 1950 (Age: 65) ??F ? Collect Date: ? 08/15/2016 ? Location: ? [facility] ? Receive Date: ? 08/17/2016 ? Provider: SUSANA STEEN MD Copy to: ? Final Pathologic Diagnosis: A. SMALL INTESTINE, 2ND PORTION OF DUODENUM, BIOPSY: - ??Duodenal mucosa with no diagnostic abnormality. B. STOMACH, ANTRUM AND BODY, BIOPSY: - ??Antral and transitional mucosa with reactive (chemical) gastropathy. - ??No evidence of Helicobacter pylori on H&E. C. STOMACH, BODY, POLYPS, BIOPSY: - ??Fragments of fundic gland polyps. D. ESOPHAGUS, DISTAL, BIOPSY: - ??Squamocolumnar junction mucosa with reflux esophagitis. - ??Negative for intestinal metaplasia or dysplasia. E. ESOPHAGUS, MID, BIOPSY: - ??Squamous mucosa with no diagnostic abnormality. Dr. Thorpe 08/21/2016 12:09 AM Document reviewed and electronically signed by: GRACIA HURD MD Report ??Date: 08/21/2016 10:44 By the signature above, the attending physician certifies that he/she has personally conducted a gross and/or microscopic examination of the described specimens and rendered or confirmed the above diagnosis. Specimen(s) Received: A. ?2nd portion of duodenum B. ? Antrum and body C. ? Body polyps D. ? Distal esophagus E. ? Mid esophagus Clinical History: GERD; clinical diagnosis code: ??K21.9, R13.10 Gross Description: A. ?Received in formalin labelled with proper patient identification (initials J, B) and A. 2nd portion of duodenum are two valencia-yellow granular tissues (0.2 x 0.2 x 0.1 cm and 0.3 x 0.2 x 0.2 cm). Entirely submitted in A1. B. ?Received in formalin labelled with proper patient identification (initials J, B) and B. antrum + body are three valencia-yellow tissues (0.3 x 0.1 x 0.1 cm, 0.3 x 0.2 x 0.1 cm and 0.3 x 0.2 x 0.2 cm). Entirely submitted in B1. C. ?Received in formalin labelled with proper patient identification (initials J, B) and C. body polyps are three valencia-yellow mottled tissues (0.3 x 0.2 x 0.2 cm, 0.4 x 0.2 x 0.2 cm and 0.4 x 0.2 x 0.2 cm). Entirely submitted in C1. D. ?Received in formalin labelled with proper patient identification (initials J, B) and D. distal esophagus are three valencia-yellow tissues (0.2 x 0.1 x 0.1 cm, 0.3 x 0.1 x 0.1 cm and 0.3-0.1 x 0.1 cm). Entirely submitted in D1. E. ?Received in formalin labelled with proper patient identification (initials J, B) and E. mid esophagus are two valencia-white tissues (0.3 x 0.2 x 0.1 cm and 0.4 x 0.2 x 0.1 cm). Entirely submitted in E1. Shantell Tellez 08/17/2016 1:22 PM End of Report [facility] 08/15/2016 10:5 4 EST 08/17/2016 10:54 EST us Bassam Steen MD PATHOLOGY ORDERABLES Final Resul t [facility] [address] [place] [address] documented in this encounter Visit Diagnoses Not on filedocumented in this encounter Care Teams Sock Lining Examiner Relationship Specialty Start Date End Date Amisha Bardales FNP [address] [place], [place] [phone] PCP - General 12/31/13 documented as of this encounter
--- OUTSIDE RECORDS SUMMARY | 2024-07-04 00:35 | XMS_ITS | Encounter Summary ---
Author Organization [facility] Address [address] [place] [address] Care Team Providers Care Global Compensation Manager Name Role Phone Unavailable Primary Care Provider Unavailabl e Encounter Details Date Type Department Care Team (Late st Contact Info) Description 01/12/2004 Results Only [facility] - Maple conversion [address] [place] [address] Delilah Bardales FNP [address] [place], [place] [phone] Social History Tobacco Use Types Packs/Day Years [...] Procedure Name Priority Date/Time Associated Diagnosis Comments CYTOPATHOLOGY Routine 01/12/2004 0:00 EDT documented in this encounter Results * CYTOPATHOLOGY (01/12/2004 0:00 EDT) Pathology Report: CYTOPATHOLOGY REPORT Reports generated via electronic interface contain original data; however they are lacking the format of the original report. Caution should be taken when reading/interpreti ng unformatted reports. Name: ? BLAIRTAHIRAA Donavan ? Accession #: ? [id number] : ? 1950 (Age: 53) ??F ?Collect Date: ? 01/12/2004 Location: ? [facility] ? Receive Date: ? 01/15/2004 Provider: ?DELILAH WATSONP Copy to: ? Specimen/Source: ?ThinPrep Pap Test, Cervix/Endocervix Last Menstrual Period: ? / Treatment History: ? Miscellaneous treatment: Hx cervical polyp, D & C in , endometrial bx 2002 Other: ? HPVA - HPV testing requested if ASC-US on the current ThinPrep Pap test. ? SPECIMEN ADEQUACY ? Satisfactory for Evaluation - transformation zone component present - scant squamous epithelial component secondary to excessive inflammation GENERAL CATEGORIZATION ? Negative for Intraepithelial Lesion or Malignancy ? Document reviewed and electronically signed by: ? DANIEL Hernandez(ASCP) ? Report Date: ??01/20/2004 13:23 End of Report [facility] 01/12/2004 01/15/2004 us Delilah Bardales NUTRITION COORDINATOR PATHOLOGY ORDERABLES Final Resul t [facility] [address] [place] [address] documented in this encounter Visit Diagnoses Not on filedocumented in this encounter
--- OUTSIDE RECORDS SUMMARY | 2024-07-04 00:35 | XMS_ITS | Encounter Summary ---
Author Organization [facility] Address [address] [place] [address] Care Team Providers Care Energy Conservation Representative Name Role Phone Unavailable Primary Care Provider Unavailabl e Encounter Details Date Type Department Care Team (Late st Contact Info) Description 05/21/2005 Results Only [facility] - Maple conversion [address] [place] [address] Delilah Bardales FNP [address] [place], [place] [phone] Social History Tobacco Use Types Packs/Day Years [...] Priority Date/Time Associated Diagnosis Comments CYTOPATHOLOGY Routine 05/21/2005 0:00 EST documented in this encounter Results * CYTOPATHOLOGY (05/21/2005 0:00 EST) Pathology Report: CYTOPATHOLOGY REPORT Reports generated via electronic interface contain original data; however they are lacking the format of the original report. Caution should be taken when reading/interpreti ng unformatted reports. Name: ? JES SALGADO ? Accession #: ? [id number] : ? 1950 (Age: 54) ??F ?Collect Date: ? 05/21/2005 Location: ? [facility] ? Receive Date: ? 05/26/2005 Provider: ?DELILAH WATSONP Copy to: ? Specimen/Source: ?ThinPrep Pap Test, Cervix/Endocervix, processed on [employer] ThinPrep Imaging System, with manual evaluation Last Menstrual Period: ? 01/02 Other: ? HPVA - HPV testing requested if ASC-US on the current ThinPrep Pap test. ? SPECIMEN ADEQUACY ? Satisfactory for Evaluation - transformation zone component present GENERAL CATEGORIZATION ? Negative for Intraepithelial Lesion or Malignancy ? Document reviewed and electronically signed by: ? DANIEL Miles(ASCP) ? Report Date: ??05/30/2005 13:53 End of Report [facility] 05/21/2005 05/26/2005 us Delilah Bardales LOIN PULLER PATHOLOGY ORDERABLES Final Resul t [facility] [address] [place] [address] documented in this encounter Visit Diagnoses Not on filedocumented in this encounter
--- OUTSIDE RECORDS SUMMARY | 2024-07-04 00:35 | XMS_ITS | Encounter Summary ---
Author Organization [facility] Address [address] [place] [address] Care Team Providers Care Driver Operator Name Role Phone Unavailable Primary Care Provider Unavailabl e Encounter Details Date Type Department Care Team (Late st Contact Info) Description 07/12/2006 Results Only [facility] - Maple conversion [address] [place] [address] Delilah Bardales FNP [address] [place], [place] [phone] Social History Tobacco Use Types Packs/Day Years [...] Priority Date/Time Associated Diagnosis Comments CYTOPATHOLOGY Routine 07/12/2006 0:00 EST documented in this encounter Results * CYTOPATHOLOGY (07/12/2006 0:00 EST) Pathology Report: CYTOPATHOLOGY REPORT Reports generated via electronic interface contain original data; however they are lacking the format of the original report. Caution should be taken when reading/interpreti ng unformatted reports. Name: ? LILLIAN SALGADONDJung Go ? Accession #: ? [id number] : ? 1950 (Age: 55) ??F ?Collect Date: ? 07/12/2006 Location: ? [facility] ? Receive Date: ? 07/16/2006 Provider: ?DELILAH BARDALES PLANING MACHINE OPERATOR Copy to: ? Specimen/Source: ?ThinPrep Pap Test, Cervix/Endocervix, processed on [employer] ThinPrep Imaging System, with manual evaluation Last Menstrual Period: ? ANGEL Other: ? HPVA - HPV testing requested if ASC-US on the current ThinPrep Pap test. ? SPECIMEN ADEQUACY ? Satisfactory for Evaluation - transformation zone component present GENERAL CATEGORIZATION ? Negative for Intraepithelial Lesion or Malignancy ? Document reviewed and electronically signed by: ? Miriam Ware, SCT(ASCP) ? Report Date: ??07/17/2006 10:50 End of Report [facility] 07/12/2006 07/16/2006 us Delilah Bardales PLANING MACHINE OPERATOR PATHOLOGY ORDERABLES Final Resul t [facility] [address] [place] [address] documented in this encounter Visit Diagnoses Not on filedocumented in this encounter
--- OUTSIDE RECORDS SUMMARY | 2024-07-04 00:35 | XMS_ITS | Encounter Summary ---
Author Organization [facility] Address [address] [place] [address] Care Team Providers Care Plastics Factory Worker Name Role Phone Unavailable Primary Care Provider Unavailabl e Encounter Details Date Type Department Care Team (Latest Contact Info) Description 12/26/2013 11:41 EDT - 12/26/2013 23:59 EDT Hospital Encounter [address] [address] Unknown, Provider, MD Discharge Disposition: Home or Self Care Social History Tobacco Use Types Packs/Day Years Used Date Smoking Tobacco: Never Assessed Comments Unknown Sex and Gender Information Value Date Recorded Sex Assigned at Not on file Legal Sex Female 18:13 EST Gender Identity Not on file Sexual Orientation Not on file documented as of this encounter Discharge Disposition Disposition Code Departure Means Destination Home or Self Jail documented in this encounter Plan of Treatment Not on file documented as of this encounter Visit Diagnoses Not on filedocumented in this encounter
--- OUTSIDE RECORDS SUMMARY | 2024-07-04 00:35 | XMS_ITS | Referral Summary ---
Author Organization [facility] Address [address] [place] [address] Care Team Providers Care Frame Stylist Name Role Phone Amisha Bardales Primary Care Provider [phone] Social History Tobacco Use Types Packs/Day Years Used Date Smoking Tobacco: Never Assessed Comments Unknown Sex and Gender Information Value Date Recorded Sex Assigned at Not on file Legal Sex Female 18:13 EST Gender Identity Not on file Sexual Orientation Not on file Plan of Treatment Not on file Care Teams Frame Stylist Relationship Specialty Start Date End Date Amisha Bardales FNP [address] [place] [address] PCP - General 12/31/13
--- OUTSIDE RECORDS SUMMARY | 2024-07-04 00:35 | XMS_ITS | Encounter Summary ---
Author Organization [facility] Address [address] [place] [address] Care Team Providers Care Griddle Attendant Name Role Phone Unavailable Primary Care Provider Unavailabl e Encounter Details Date Type Department Care Team (Late st Contact Info) Description 09/29/2008 Before PRISM Converted Visit (Maple) [facility] - Maple conversion [address] [place] [address] Delilah Bardales FNP [address] [place], [place] [phone] Social History Tobacco Use Types Packs/Day Years [...] Priority Date/Time Associated Diagnosis Comments CYTOPATHOLOGY Routine 09/29/2008 0:00 EDT documented in this encounter Results * CYTOPATHOLOGY (09/29/2008 0:00 EDT) Pathology Report: CYTOPATHOLOGY REPORT ? Reports generated via electronic interface contain original data; ? however they are lacking the format of the original report. ? Caution should be taken when reading/interpreti ng unformatted reports. ? Name: ? JES SALGADO ? Accession #: ? [id number] ? : ? 1950 (Age: 58) ??F ?Collect Date: ? 09/29/2008 ? Location: ? [facility] ? Receive Date: ? 09/30/2008 ? Provider: ?DELILAH NAQVI ? Copy to: ? Specimen/Source: ?Pap Test, Endocervix, ThinPrep Imaging System with ? manual evaluation ? Last Menstrual Period: ? Other: ? HPVA - HPV testing requested if ASC-US on the current ThinPrep Pap test. ? SPECIMEN ADEQUACY ? Satisfactory for Evaluation ? - transformation zone component present ? GENERAL CATEGORIZATION ? Negative for Intraepithelial Lesion or Malignancy ? Document reviewed and electronically signed by: ? Homer Nguyen, CT(ASCP) ? Report Date: ??10/01/2008 10:39 ? End of Report ? [facility] 09/29/2008 09/30/2008 us Delilah Bardales APPLICATION MANAGER PATHOLOGY ORDERABLES Final Resul t [facility] [address] [place] [address] documented in this encounter Visit Diagnoses Not on filedocumented in this encounter
--- OUTSIDE RECORDS SUMMARY | 2024-07-04 00:35 | XMS_ITS | Clinical Summary ---
Author Organization [facility] Address [address] [place] [address] Care Team Providers Care Motor Grader Operator Name Role Phone Amisha Bardales Primary Care Provider [phone] Social History Tobacco Use Types Packs/Day Years Used Date Smoking Tobacco: Never Assessed Comments Unknown Sex and Gender Information Value Date Recorded Sex Assigned at Not on file Legal Sex Female 18:13 EST Gender Identity Not on file Sexual Orientation Not on file Plan of Treatment Health Maintenance Due Date Last Done Comments Hepatitis C Screen 1950 Fall Risk Screening 2015 COVID-19 Vaccine (2023-25 season) 2024 RSV Immunization ( o r 60+ Years) (1 - 1-dose 75+ series) 2025 Care Teams Motor Grader Operator Relationship Specialty Start Date End Date Amisha Bardales FNP [address] [place] [address] PCP - General 12/31/13
--- OUTSIDE RECORDS SUMMARY | 2024-07-04 00:35 | XMS_ITS | Encounter Summary ---
Author Organization [facility] Address [address] [place] [address] Care Team Providers Care Cheese Specialist Name Role Phone Unavailable Primary Care Provider Unavailabl e Encounter Details Date Type Department Care Team (Late st Contact Info) Description 08/13/2007 Results Only [facility] - Maple conversion [address] [place] [address] Delilah Bardales FNP [address] [place], [place] [phone] Social History Tobacco Use Types Packs/Day Years [...] Priority Date/Time Associated Diagnosis Comments CYTOPATHOLOGY Routine 08/13/2007 0:00 EST documented in this encounter Results * CYTOPATHOLOGY (08/13/2007 0:00 EST) Pathology Report: CYTOPATHOLOGY REPORT Reports generated via electronic interface contain original data; however they are lacking the format of the original report. Caution should be taken when reading/interpreti ng unformatted reports. Name: ? LILLIAN SALGADONDJung Go ? Accession #: ? [id number] : ? 1950 (Age: 56) ??F ?Collect Date: ? 08/13/2007 Location: ? [facility] ? Receive Date: ? 08/14/2007 Provider: ?DELILAH WATSONP Copy to: ? Specimen/Source: ?ThinPrep Pap Test, Cervix/Endocervix, processed on [employer] ThinPrep Imaging System, with manual evaluation Last Menstrual Period: ? 4 yrs ago Other: ? HPVA - HPV testing requested if ASC-US on the current ThinPrep Pap test. ? SPECIMEN ADEQUACY ? Satisfactory for Evaluation - transformation zone component present GENERAL CATEGORIZATION ? Negative for Intraepithelial Lesion or Malignancy ? Document reviewed and electronically signed by: ? DANIEL Aleman(ASCP) ? Report Date: ??08/19/2007 11:57 End of Report [facility] 08/13/2007 08/14/2007 us Delilah Bardales PASTORAL COUNSELOR PATHOLOGY ORDERABLES Final Resul t [facility] [address] [place] [address] documented in this encounter Visit Diagnoses Not on filedocumented in this encounter
--- OUTSIDE RECORDS SUMMARY | 2024-07-04 00:35 | XMS_ITS | Encounter Summary ---
Author Organization [facility] Address [address] [place] [address] Care Team Providers Care Manager Intensive Care Unit Name Role Phone Unavailable Primary Care Provider Unavailabl e Encounter Details Date Type Department Care Team (Late st Contact Info) Description 12/26/2013 Results Only [facility] [address] [place], [place] [address] Tip Alvarez, [address] [facility] [address] [place] [address] Social History Tobacco Use Types Packs/Day Years [...] Date/Time Associated Diagnosis Comments SURGICAL PATHOLOGY Routine 12/26/2013 8:27 EDT documented in this encounter Results * SURGICAL PATHOLOGY (12/26/2013 8:27 EDT) Pathology Report: SURGICAL PATHOLOGY REPORT Reports generated via electronic interface contain original data; however they are lacking the format of the original report. Caution should be taken when reading/interpreti ng unformatted reports. Name: ? JES SALGADO ? Accession #: ? [id number] ? : ? 1950 (Age: 63) ??F ? Collect Date: ? 12/26/2013 ? Location: ? [facility] ? Receive Date: ? 12/27/2013 ? Provider: TIP ALVAREZ DO Copy to: DELILAH WINN MOBILITY DEVELOPER ? Final Pathologic Diagnosis: A. STOMACH, ANTRUM, BIOPSY: - ??Antral and transitional mucosa with reactive gastropathy. - ??No evidence of Helicobacter pylori on H&E. B. STOMACH, POLYPS, BIOPSY: - ??Fragments of fundic gland polyps. C. ESOPHAGUS, DISTAL, BIOPSY: - ??Squamous mucosa with features of reflux esophagitis. D. ESOPHAGUS, MID, BIOPSY: - ??Reactive squamous mucosa with no diagnostic alteration. E. ESOPHAGUS, PROXIMAL, BIOPSY: - ??Squamous mucosa with no diagnostic alteration. Document reviewed and electronically signed by: GRACIA HURD MD Report ??Date: 12/30/2013 10:00 By the signature above, the attending physician certifies that he/she has personally conducted a gross and/or microscopic examination of the described specimens and rendered or confirmed the above diagnosis. Specimen(s) Received: A. ?Gastric antrum B. ? Stomach polyps, body of stomach C. ? Distal esophagus D. ? Mid esophagus E. ? Proximal esophagus Clinical History: GERD Gross Description: A. ?Received in formalin labelled with proper patient identification (initials J, B) and gastric antrum are two pink-valencia tissues (0.5 x 0.2 x 0.2 cm and 0.6 x 0.3 x 0.1 cm). Entirely submitted in A1. B. ?Received in formalin labelled with proper patient identification (initials J, B) and stomach polyps, body of stomach are two pink-valencia polypoid tissues (0.5 x 0.4 x 0.3 cm and 0.6 x 0.5 x 0.4 cm). The margins are inked blue, the larger piece is bisected and entirely submitted in B1, and the smaller piece is bisected and entirely submitted in B2. C. ?Received in formalin labelled with proper patient identification (initials J, B) and distal esophagus are three valencia-white tissues (0.2 x 0.2 x 0.1 cm to 0.5 x 0.2 x 0.1 cm). Entirely submitted in C1. D. ?Received in formalin labelled with proper patient identification (initials J, B) and mid esophagus are two valencia-white tissues (0.3 x 0.2 x 0.1 cm and 0.6 x 0.3 x 0.1 cm). Entirely submitted in D1. E. ?Received in formalin labelled with proper patient identification (initials J, B) and proximal esophagus are five valencia-white tissues (0.1 x 0.1 x 0.1 cm to 0.3 x 0.2 x 0.1 cm). Entirely submitted in E1-E2. Brittney Glass 12/29/2013 08:34 AM End of Report [facility] 12/26/2013 8:27 EDT 12/27/2013 8:27 EDT us Tip Alvarez DO PATHOLOGY ORDERABLES Fi nal Result [facility] [address] [place] [address] documented in this encounter Visit Diagnoses Not on filedocumented in this encounter
--- OUTSIDE RECORDS SUMMARY | 2024-07-04 00:35 | XMS_ITS | Encounter Summary ---
Author Organization [facility] Address [address] [place] [address] Care Team Providers Care Lacquer Sprayer Name Role Phone Amisha Bardales DRISS Primary Care Provider [phone] Encounter Details Date Type Department Care Team (Late st Contact Info) Description 03/14/2024 Lab Requisition [facility] Pathology & Laboratory Medicine - [address] [id number] Outr Resulting Lab, Provider Social History Tobacco Use Types Packs/Day Years [...] Procedure Name Priority Date/Time Associated Diagnosis Comments VITAMIN D (25,OH) Routine 03/14/2024 9:07 EDT documented in this encounter Results * VITAMIN D (25,OH) (03/14/2024 9:07 EDT) 25OH Vitamin D Tot 60 30 - 100 ng/mL 03/17/2024 10:45 EDT [facility] Comment: Vitamin D 25,OH Interpretive Ranges: Deficiency: ??<10.0 ng/mL Insufficiency: ??10.0 - 30.0 ng/mL Sufficiency: ??30.0 - 100.0 ng/mL Toxicity: ??>100.0 ng/mL Blood VENOUS BLOOD / Unknown 03/14/2024 9:07 EDT 03/14/2024 21:23 EDT us Provider Outr Resulting Lab CHEMISTRY & BLOOD GA S ORDERABLES Final Result Performing Organization Address City/State/[facility] Co de Phone Number [facility] [address] [place] [address] documented in this encounter Visit Diagnoses Not on filedocumented in this encounter Care Teams Lacquer Sprayer Relationship Specialty Start Date End Date Amisha Bardales FNP [address] [place], [place] [phone] PCP - General 12/31/13 documented as of this encounter
--- OUTSIDE RECORDS SUMMARY | 2024-07-04 00:35 | XMS_ITS | Encounter Summary ---
Author Organization [facility] Address [address] [place] [id number] Care Team Providers Care Spindle Sander Name Role Phone Unavailable Primary Care Provider Unavailabl e Encounter Details Date Type Department Care Team (Late st Contact Info) Description 09/07/2009 Results Only [facility] Laboratory Services - [facility] [place] [place] [address], [place] [phone] Jose Ramon [facility] [place] [address] Social History Tobacco Use Types Packs/Day Years [...] Priority Date/Time Associated Diagnosis Comments CYTOPATHOLOGY Routine 09/07/2009 0:00 EST documented in this encounter Results * CYTOPATHOLOGY (09/07/2009 0:00 EST) Pathology Report: CYTOPATHOLOGY REPORT ? Reports generated via electronic interface contain original data; ? however they are lacking the format of the original report. ? Caution should be taken when reading/interpreti ng unformatted reports. ? Name: ? JES SALGADO ? Accession #: ? [id number] ? : ? 1950 (Age: 59) ??F ?Collect Date: ? 09/07/2009 ? Location: ? [facility] ? Receive Date: ? 09/09/2009 ? Provider: ?JOSE RAMON YEE MD ? Copy to: ? Specimen/Source: ?Pap Test, Intracervical, ThinPrep Imaging System with ?? manual evaluation ? Last Menstrual Period: ? remote ? Other: ? DHPV - HPV testing requested if ASCUS/EVERT on the current ThinPrep Pap test. ? SPECIMEN ADEQUACY ? Satisfactory for Evaluation ? - transformation zone component present ? GENERAL CATEGORIZATION ? Negative for Intraepithelial Lesion or Malignancy ? INTERPRETATION ? Reactive cellular changes associated with inflammation present (includes ?? repair). ? Document reviewed and electronically signed by: ? Thao J. Fischer, MD PhD ? Report Date: ??09/14/2009 14:28 ? End of Report ? [facility] 09/07/2009 09/09/2009 us Jose Ramon Yee MD PATHOLOGY ORDERABLES Final Result [facility] [address] [place] [address] documented in this encounter Visit Diagnoses Not on filedocumented in this encounter
--- OUTSIDE RECORDS SUMMARY | 2024-07-04 00:35 | XMS_ITS | Encounter Summary ---
Author Organization [facility] Address [address] [place] [address] Care Team Providers Care Algorithm Developer Name Role Phone Delilah Bardales Primary Care Provider [phone] Encounter Details Date Type Department Care Team (Late st Contact Info) Description 06/03/2014 Results Only [facility] Laboratory Services - [facility] ([facility] [place] [address] [place], [place] [address] Delilah Bardales FNP [address] [place], [place] [phone] Social History Tobacco Use Types Packs/Day Years [...] Procedure Name Priority Date/Time Associated Diagnosis Comments PAP TEST- RESULT ONLY Routine 06/03/2014 0:00 EST documented in this encounter Results * PAP TEST- RESULT ONLY (06/03/2014 0:00 EST) Pathology Report: CYTOPATHOLOGY REPORT Reports generated via electronic interface contain original data; however they are lacking the format of the original report. Caution should be taken when reading/interpreti ng unformatted reports. Name: ? JES SALGADO ? Accession #: ? [id number] : ? 1950 (Age: 63) ??F ?Collect Date: ? 06/03/2014 Location: ? [facility] ? Receive Date: ? 06/05/2014 Provider: ?DELILAH BARDALES SECURITY ADVISOR Copy to: ? Specimen/Source: ?Pap Test, Cervix/Endocervix, ThinPrep Imaging System with manual evaluation Last Menstrual Period: ? Many yrs ago ? SPECIMEN ADEQUACY ? Satisfactory for Evaluation - transformation zone component present GENERAL CATEGORIZATION ? Negative for Intraepithelial Lesion or Malignancy ? Document reviewed and electronically signed by: ? DANIEL Miles(ASCP) ? Report Date: ??06/09/2014 11:17 End of Report [facility] 06/03/2014 06/05/2014 us Delilah NAQVI PATHOLOGY ORDERABLES Final Resul t [facility] [address] [place] [address] documented in this encounter Visit Diagnoses Not on filedocumented in this encounter Care Teams Algorithm Developer Relationship Specialty Start Date End Date Delilah Bardales FNP [address] [place], [place] [phone] PCP - General 12/31/13 documented as of this encounter
--- OUTSIDE RECORDS SUMMARY | 2024-07-04 00:36 | XMS_ITS | Encounter Summary ---
Author Organization [facility] Address [address] [place] [address] Care Team Providers Care Smoking Tobacco Packer Hand Name Role Phone Unavailable Primary Care Provider Unavailabl e Encounter Details Date Type Department Care Team (Late st Contact Info) Description 07/17/2001 Results Only [facility] [place] conversion [address] [place] [address] Lisseth Woodard MD [address] [place] [address] [place] [address] Social History Tobacco Use Types Packs/Day Years [...] Date/Time Associated Diagnosis Comments SURGICAL PATHOLOGY Routine 07/17/2001 0:00 EST documented in this encounter Results * SURGICAL PATHOLOGY (07/17/2001 0:00 EST) Pathology Report: SURGICAL PATHOLOGY REPORT Reports generated via electronic interface contain original data; however they are lacking the format of the original report. Caution should be taken when reading/interpreti ng unformatted reports. Name: ? JES SALGADO ? Accession #: ? [id number] ? : ? 1950 (Age: 50) ??F ? Collect Date: ? 07/17/2001 ? Location: ? [facility] ? Receive Date: ? 07/18/2001 ? Provider: LISSETH WOODARD MD Copy to: TISH LOPEZ MD ? Final Pathologic Diagnosis: ? Skin of vulva, left side, excision: ? - ??Follicular cyst, infundibular type. Document reviewed and electronically signed by: Mirna Oliva MD Report ??Date: 07/19/2001 15:22 By the signature above, the attending physician certifies that he/she has personally conducted a gross and/or microscopic examination of the described specimens and rendered or confirmed the above diagnosis. Specimen(s) Received: ? Cyst L vulva Clinical History: ? Sebaceous cyst L vulva Gross Description: ? Received in formalin labelled Naomi and cyst L vulva is a valencia-white, previously incised, 1.2 x 1.2 x 0.2 cm cyst-like structure which contains a moderate amount of white, friable material. ??No skin is grossly identified. ??The specimen is serially sectioned and entirely submitted in one cassette. ??(Neeta Clark)/dtl End of Report [facility] 07/17/2001 07/18/2001 8:5 2 EST us Lisseth Woodard MD PATHOLOGY ORDERABLES Final Resu lt [facility] [address] [place] [address] documented in this encounter Visit Diagnoses Not on filedocumented in this encounter
--- OUTSIDE RECORDS SUMMARY | 2024-07-04 00:36 | XMS_ITS | Encounter Summary ---
Author Organization [facility] Address [address] [place] [address] Care Team Providers Care Motel Maid Name Role Phone Unavailable Primary Care Provider Unavailabl e Encounter Details Date Type Department Care Team (Late st Contact Info) Description 11/01/2000 Results Only [facility] [place] [facility] [address] [place] [address] Delilah Bardales FNP [address] [place], [place] [phone] Social History Tobacco Use Types Packs/Day Years [...] Priority Date/Time Associated Diagnosis Comments CYTOPATHOLOGY Routine 11/01/2000 0:00 EDT documented in this encounter Results * CYTOPATHOLOGY (11/01/2000 0:00 EDT) Pathology Report: CYTOPATHOLOGY REPORT Reports generated via electronic interface contain original data; however they are lacking the format of the original report. Caution should be taken when reading/interpreti ng unformatted reports. Name: ? BLAIRJES GUZMAN ? Accession #: ? [id number] : ? 1950 (Age: 50) ??F ?Collect Date: ? 11/01/2000 Location: ? [facility] ? Receive Date: ? 11/05/2000 Provider: ?DELILAH WATSONP Copy to: ? Specimen/Source: ?ThinPrep Pap Test, Cervix/Endocervix Last Menstrual Period: ? 09/29/00 ? SPECIMEN ADEQUACY ? Satisfactory for evaluation. GENERAL CATEGORIZATION ? Within Normal Limits ? Document reviewed and electronically signed by: ? DANIEL Morocho(ASCP) ? Report Date: ??11/06/2000 10:58 End of Report [facility] 11/01/2000 11/05/2000 us Delilah NAQVI PATHOLOGY ORDERABLES Final Resul t [facility] [address] [place] [address] documented in this encounter Visit Diagnoses Not on filedocumented in this encounter
--- OUTSIDE RECORDS SUMMARY | 2024-07-04 00:36 | XMS_ITS | Encounter Summary ---
Author Organization [facility] Address [address] [place] [address] Care Team Providers Care Campus Ambassador Name Role Phone Unavailable Primary Care Provider Unavailabl e Encounter Details Date Type Department Care Team (Late st Contact Info) Description 11/19/2001 Results Only [facility] - [facility] conversion [address] [place] [address] Delilah Bardales FNP [address] [place], [place] [phone] Social History Tobacco Use Types Packs/Day Years [...] Priority Date/Time Associated Diagnosis Comments CYTOPATHOLOGY Routine 11/19/2001 0:00 EDT documented in this encounter Results * CYTOPATHOLOGY (11/19/2001 0:00 EDT) Pathology Report: CYTOPATHOLOGY REPORT Reports generated via electronic interface contain original data; however they are lacking the format of the original report. Caution should be taken when reading/interpreti ng unformatted reports. Name: ? BLAIR JES Donavan ? Accession #: ? [id number] : ? 1950 (Age: 51) ??F ?Collect Date: ? 11/19/2001 Location: ? [facility] ? Receive Date: ? 11/21/2001 Provider: ?DELILAH BARDALES BOAT CANVAS INSTALLER Copy to: ? Specimen/Source: ?Conventional Pap Test, Cervix/Endocervix Last Menstrual Period: ? Hormonal/Contracep tive Status: ? Provera Treatment History: ? Miscellaneous treatment: Endometrial bx, uterine bleeding ? SPECIMEN ADEQUACY ? Satisfactory for Evaluation - transformation zone component present - scant squamous epithelial component GENERAL CATEGORIZATION ? Negative for Intraepithelial Lesion or Malignancy ? Document reviewed and electronically signed by: ? DANIEL Balbuena(ASCP) ? Report Date: ??11/26/2001 09:37 End of Report [facility] 11/19/2001 11/21/2001 us Delilah Bardales BOAT CANVAS INSTALLER PATHOLOGY ORDERABLES Final Resul t [facility] [address] [place] [address] documented in this encounter Visit Diagnoses Not on filedocumented in this encounter
--- OUTSIDE RECORDS SUMMARY | 2024-07-04 00:36 | XMS_ITS | Encounter Summary ---
Author Organization [facility] Address [address] [place] [address] Care Team Providers Care Ladies' Hat Trimmer Name Role Phone Unavailable Primary Care Provider Unavailabl e Encounter Details Date Type Department Care Team (Late st Contact Info) Description 10/23/2001 Results Only [facility] [place] [facility] [address] [place] [address] Lisseth Woodard MD [address] [place] [address] [place] [address] Social History Tobacco Use Types Packs/Day Years [...] Date/Time Associated Diagnosis Comments SURGICAL PATHOLOGY Routine 10/23/2001 0:00 EDT documented in this encounter Results * SURGICAL PATHOLOGY (10/23/2001 0:00 EDT) Pathology Report: SURGICAL PATHOLOGY REPORT Reports generated via electronic interface contain original data; however they are lacking the format of the original report. Caution should be taken when reading/interpreti ng unformatted reports. Name: ? JES SALGADO ? Accession #: ? [id number] ? : ? 1950 (Age: 51) ??F ? Collect Date: ? 10/23/2001 ? Location: ? [facility] ? Receive Date: ? 10/23/2001 ? Provider: LISSETH WOODARD MD Copy to: TISH LOPEZ MD ? Final Pathologic Diagnosis: ? Endometrium, biopsy: 1. 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 3. ?No evidence of malignancy. Document reviewed and electronically signed by: Jaky Gonzalez MD Report ??Date: 10/25/2001 17:25 By the signature above, the attending physician certifies that he/she has personally conducted a gross and/or microscopic examination of the described specimens and rendered or confirmed the above diagnosis. Specimen(s) Received: ? Endometrial bx Clinical History: ? Dysfunctional bleeding; taking Provera 10 mg qd Gross Description: ? Received in formalin labelled Naomi and endo bx is dark red-valencia tissue which measures approximately 2.0 cc in volume. ??The specimen is submitted entirely as (A1) and (A2). ??(Dr. Burrell)/molly End of Report [facility] 10/23/2001 10/23/2001 15: 07 EDT us Lsiseth Woodard MD PATHOLOGY ORDERABLES Final Resu lt [facility] [address] [place] [address] documented in this encounter Visit Diagnoses Not on filedocumented in this encounter
--- OUTSIDE RECORDS SUMMARY | 2024-07-04 00:36 | XMS_ITS | Encounter Summary ---
Author Organization [facility] Address [address] [place] [address] Care Team Providers Care Rn Anesthetist Name Role Phone Unavailable Primary Care Provider Unavailabl e Encounter Details Date Type Department Care Team (Late st Contact Info) Description 10/17/2001 Results Only [facility] [place] [facility] [address] [place] [address] Tip Alvarez, DO [address] [place] [address] Social History Tobacco Use Types [...] Date/Time Associated Diagnosis Comments SURGICAL PATHOLOGY Routine 10/17/2001 0:00 EDT documented in this encounter Results * SURGICAL PATHOLOGY (10/17/2001 0:00 EDT) Pathology Report: SURGICAL PATHOLOGY REPORT Reports generated via electronic interface contain original data; however they are lacking the format of the original report. Caution should be taken when reading/interpreti ng unformatted reports. Name: ? JES SALGADO ? Accession #: ? [id number] ? : ? 1950 (Age: 51) ??F ? Collect Date: ? 10/17/2001 ? Location: ? [facility] ? Receive Date: ? 10/19/2001 ? Provider: TIP ALVAREZ DO Copy to: TISH LOPEZ MD ? Final Pathologic Diagnosis: A. ?Colon, splenic flexure, biopsies: 1. 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 B. ?Colon, sigmoid, biopsies: 1. 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 C. ?Rectum, biopsies: 1. ?One piece of hyperplastic polyp; no adenoma identified. 2. ?One piece of colonic mucosa with no pathologic features. Document reviewed and electronically signed by: Jaky Gonzalez MD Report ??Date: 10/22/2001 17:51 By the signature above, the attending physician certifies that he/she has personally conducted a gross and/or microscopic examination of the described specimens and rendered or confirmed the above diagnosis. Specimen(s) Received: A. ?Bx splenic flexure (#1) B. ?Bx sigmoid colon (#2) C. ?Bx rectum (#3) Clinical History: ? Change in bowel habits Gross Description: ? Received in [place]e' s fixative labelled Naomi and #1 bx splenic flexure are two biopsies which measure 0.2 x 0.2 x 0.1 cm and 0.2 x 0.1 x 0.1 cm. ??The specimen is submitted entirely as (A). ?? Received in Hollande' s fixative labelled Naomi and #2 bx sigmoid colon are three biopsies which measure 0.2 x 0.1 x 0.1 cm each. ??The specimens are submitted entirely as (B). Received in Hollande' s fixative labelled Naomi and #3 bx rectum are two biopsies which measure 0.2 x 0.2 x 0.1 cm and 0.2 x 0.1 x 0.1 cm. ??The specimens are submitted entirely as (C). ??(Dr. Burrell)/[facility] End of Report [facility] 10/17/2001 10/19/2001 9:5 7 EDT us Tip Alvarez DO PATHOLOGY ORDERABLES Fi nal Result [facility] [address] [place] [address] documented in this encounter Visit Diagnoses Not on filedocumented in this encounter
--- OUTSIDE RECORDS SUMMARY | 2024-07-04 00:36 | XMS_ITS | Encounter Summary ---
Author Organization [facility] Address [address] [place] [address] Care Team Providers Care Senior Principal Process Engineer Name Role Phone Unavailable Primary Care Provider Unavailabl e Encounter Details Date Type Department Care Team (Late st Contact Info) Description 11/13/2002 Results Only [facility] [place] [facility] [address] [place] [address] Delilah Bardales FNP [address] [place], [place] [phone] Social History Tobacco Use Types Packs/Day Years [...] Priority Date/Time Associated Diagnosis Comments CYTOPATHOLOGY Routine 11/13/2002 0:00 EDT documented in this encounter Results * CYTOPATHOLOGY (11/13/2002 0:00 EDT) Pathology Report: CYTOPATHOLOGY REPORT Reports generated via electronic interface contain original data; however they are lacking the format of the original report. Caution should be taken when reading/interpreti ng unformatted reports. Name: ? BLAIRTAHIRAA Donavan ? Accession #: ? [id number] : ? 1950 (Age: 52) ??F ?Collect Date: ? 11/13/2002 Location: ? [facility] ? Receive Date: ? 11/17/2002 Provider: ?DELILAH WATSONP Copy to: ? Specimen/Source: ?ThinPrep Pap Test, Cervix/Endocervix Last Menstrual Period: ? 10/23/02 ? SPECIMEN ADEQUACY ? Satisfactory for Evaluation - transformation zone component present GENERAL CATEGORIZATION ? Negative for Intraepithelial Lesion or Malignancy ? Document reviewed and electronically signed by: ? DANIEL Aleman(ASCP) ? Report Date: ??11/20/2002 13:24 End of Report [facility] 11/13/2002 11/17/2002 us Delilah WATSONP PATHOLOGY ORDERABLES Final Resul t [facility] [address] [place] [address] documented in this encounter Visit Diagnoses Not on filedocumented in this encounter
== END 2024-07-04 00:43 ==
LOC: DI 00:23
PROVIDERS: PCP Family Medicine; Visit Provider Family Medicine
DX: N64.59 Other signs and symptoms in breast (principal); Z12.31 Encounter for screening mammogram for malignant neoplasm of breast
CPT/HCPCS: 76642; 77062; 77066; G0279

== ENCOUNTER 2024-09-01 13:10 | Outpatient (REF) | payer MEDICARE, MEDICAID, SELFPAY ==
[2024-09-01 21:11] LABS: Iron 52 ug/dL (50-170); Total Iron Binding Capacity 270 ug/dL (250-450); Transferrin Sat 19 % (15-50)
[2024-09-01 21:21] LABS: TSH 2.79 uIU/mL (0.36-3.74)
[2024-09-02 17:50] LABS: T4, Free 1.3 ng/dL (0.8-2.2)
== END 2024-09-01 13:11 | disposition home or self-care (01) ==
LOC: NCHCN 13:10
PROVIDERS: PCP Family Medicine; Visit Provider Family Medicine
DX: L65.9 Nonscarring hair loss, unspecified (principal)
CPT/HCPCS: 83540; 83550; 84439; 84443

== ENCOUNTER 2025-03-04 21:11 | Outpatient (REF) | payer MEDICARE, SELFPAY ==
[2025-03-04 21:27] LABS: Abs Immature Grans 0.01 10^3/uL (0.0-0.06); HCT 43.1 % (36.0-46.0); HGB 14.2 g/dL (11.2-15.7); Immature Grans % 0.1 %; MCH 31.7 pg (27.0-33.0); MCHC 32.9 % (32.0-36.0); MCV 96 fL (80-95); MPV 11.4 fL (8.0-11.0); Platelet Count 265 10^3/uL (130-400); RBC 4.48 10^6/uL (3.93-5.22); RDW 13.2 % (11.7-14.6); RDW-SD 47.8 fL; WBC 8.32 10^3/uL (4.4-10.8)
[2025-03-04 21:41] LABS: Iron 81 ug/dL (50-170); Total Iron Binding Capacity 277 ug/dL (250-450); Transferrin Sat 29 % (15-50)
[2025-03-04 22:10] LABS: Calculated LDL 85 mg/dL (<100); Cholesterol 153 mg/dL (<200); Ferritin 283 ng/mL (8-252); HDL Cholesterol 52 mg/dL (>or=50); Triglyceride 84 mg/dL (<150); Vitamin B12 583 pg/mL (193-986)
[2025-03-04 22:26] LABS: Vitamin D 25 Total 102 ng/mL (30-100)
[2025-03-05 09:26] LABS: ALT 41 U/L (14-59); AST 21 U/L (15-37); Albumin 4.2 g/dL (3.4-5.0); Alkaline Phosphatase 84 U/L (46-116); Anion Gap 9.0 mmol/L (3-11); BUN 13 mg/dL (7-18); Bilirubin, Total 0.4 mg/dL (0.2-1.0); CO2 28.0 mmol/L (21.0-32.0); Calcium 9.8 mg/dL (8.5-10.1); Chloride 105 mmol/L (98-107); Estimated GFR 67.08 (mL/min/1.73m2); Glucose 102 mg/dL (74-106); Potassium 4.1 mmol/L (3.5-5.1); Sodium 142 mmol/L (136-145); Total Protein 6.9 g/dL (6.4-8.2)
== END 2025-03-04 21:12 | disposition home or self-care (01) ==
LOC: NCHCN 21:11
PROVIDERS: Nurse Practitioner Family; PCP Family Medicine; Visit Provider Family Medicine
DX: E61.1 Iron deficiency (principal); E55.9 Vitamin D deficiency, unspecified; E53.8 Deficiency of other specified B group vitamins; E78.5 Hyperlipidemia, unspecified
CPT/HCPCS: 80053; 80061; 82306; 82607; 82728; 83540; 83550; 85025